=== PATIENT | male | born 1980 | race Two or more races ===

== ENCOUNTER 2021-05-01 15:41 | Emergency (ER) | payer SELFPAY ==
[~2021-05-01] VITALS: Ht 180.3 cm; Wt 75.4 kg
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
[2021-05-01] MEDS ORDERED: BUPIVACAINE 0.25% ONE (16:26)
[2021-05-01] MEDS ORDERED: DIPH,PERTUSS(ACELL),TET VAC/PF 0.5 ML IM-VACC ONE ×2 (16:26→16:30)
[2021-05-01] MEDS ORDERED: LIDOCAINE-MPF 1%, 5ML ONE (16:26)
[2021-05-01] MEDS ORDERED: BUPIVACAINE/PF-EPI 0.25% 1:200K SQ ONE (16:30)
[2021-05-01] MEDS ORDERED: LIDOCAINE-MPF 1%, 5ML INFIL ONE (16:30)
[2021-05-01 17:34] VITALS: BP 124/91
--- NOTE | 2021-05-01 17:35 | NUR ---
VSS, PT PREPPED FOR LACERATION CLOSURE.
[2021-05-01] MEDS ORDERED: L.E.T SOLUTION TP ONE (18:25)
--- NOTE | 2021-05-01 18:31 | NUR ---
Jackie APPLIED AT 1830
[2021-05-01] MEDS ORDERED: NEOSPORIN OINT. PKT 1 PACKET ONE (19:02)
== END 2021-05-01 21:24 | disposition home or self-care (01) ==
LOC: ED 21:15
DX: S01.01XA Laceration without foreign body of scalp, initial encounter (principal); M54.2 Cervicalgia; R51.9 Headache, unspecified; Y04.8XXA Assault by other bodily force, initial encounter; Y93.89 Activity, other specified; Y92.89 Other specified places as the place of occurrence of the external cause; Y99.8 Other external cause status
CPT/HCPCS: 12002; 70450; 72125; 90471; 90715; 99285